=== PATIENT | male | born 1995 | race Caucasian/White ===

== ENCOUNTER 2025-02-14 20:09 | Day surgery (SDC) | payer SELFPAY ==
--- NOTE | ~2025-02-14 | CT_ITS ---
CT abdomen pelvis w con Clinical History: abdominal pain . Comparison: None Technique: Axial images lung bases to symphysis pubis 100 mL Omnipaque 350 Coronal, sagittal reformats CT images acquired with automatic exposure control for dose reduction DLP: 213 mGy-cm Findings: Lung bases: Clear. Visualized heart and pericardium: Unremarkable. Liver: Unremarkable. Gallbladder: Unremarkable. Spleen: Unremarkable. Pancreas: Unremarkable. Adrenal glands: Unremarkable. Kidneys: Right kidney- No hydronephrosis. No renal stones. Left kidney- No hydronephrosis. No renal stones. Distal esophagus/stomach: Unremarkable. Small bowel loops: Normal caliber and wall thickness. Colon: Normal caliber and wall thickness. Appendix enlarged. Nodes: No enlarged nodes. Peritoneum: No ascites. No free air. Urinary bladder: Unremarkable. Prostate: Unremarkable. Bones: No acute bony abnormality. Soft tissues: Unremarkable. Aorta: No aneurysm or dissection. IVC: Unremarkable. Main portal vein/SMV/splenic vein: Patent. IMPRESSION: 1. Acute appendicitis. Reviewed, dictated and finalized at location R. NING GENERALIST IMPRESSION: 1. Acute appendicitis.
--- OUTSIDE RECORDS SUMMARY | 2025-02-14 20:12 | XMS_ITS | Clinical Summary ---
Author Organization [facility] Address [address] [place] [address] Care Team Providers Care Fire Safety Director Name Role Phone No, Pcp FILLER SPREADER Primary Care Provider Unavailabl e Social History Tobacco Use Types Packs/Day Years Used Date Smoking Tobacco: Never Assessed Sex and Gender Information Value Date Recorded Sex Assigned at Not on file Legal Sex Male 10:27 AM EST Gender Identity Not on file Sexual Orientation Not on file Plan of Treatment Not on file Medical Devices Not on file Care Teams Fire Safety Director Relationship Specialty Start Date End Date No, Pcp, FILLER SPREADER N/A Do not use PCP - General Family Medicine 01/23/20
--- NOTE | 2025-02-14 20:58 | ECG_ITS ---
Test Date: 2025-02-14 23:20:48 Measurements Intervals [place] Rate: 57 P: 83 AR: 156 QRS: 87 QRSD: 102 T: 56 QT: 405 QTc: 395 Interpretive Statements SINUS BRADYCARDIA INCOMPLETE RIGHT BUNDLE BRANCH BLOCK MINIMAL Q WAVES- INFERIOR LEADS ST ELEVATION N ANTERIOR LEADS CONSISTENT WITH INJURY, PERICARDITIS, OR EARLY REPOLARIZATION [ST ELEVATION W/O NORMALLY INFLECTED T-WAVE] BASELINE ARTIFACT- I, II, AVR, V5 ABNORMAL ECG No previous ECG available for comparison Electronically Signed On 02-15-2025 06:57:38 HOSPICE RN by Jass Larkin D.O.
[2025-02-14 20:59] VITALS: BP 90/67; PULSE 57; RESP 16; TEMP 36.7; O2SAT 100
[2025-02-14 23:17] VITALS: BP 116/69; PULSE 49; RESP 16; TEMP 36.5; O2SAT 100
[2025-02-14 23:27] LABS: Hematocrit 45.6 % (42.0-52.0); Hemoglobin 16.1 g/dL (14.0-18.0); Immature Granulocyte Percent A 0.5 % (0-0.5); Lymphocytes Absolute Auto 0.89 K/mm3 (0.9-3.2); Mean Corpuscular HGB Conc 35.3 g/dl (32-36); Mean Corpuscular Hemoglobin 31.4 pg (26-34); Mean Corpuscular Volume 88.9 fl (80-100); Nucleated Red Blood Cells Absolute Auto 0.000 K/mm3 (0.0-0.012); Nucleated Red Blood Cells Perc 0.0 % (0.0-0.2); Platelet Count Result 187 k/mm3 (150-375); Red Blood Count 5.13 M/mm3 (4.6-6.20); White Blood Count 12.2 K/mm3 (4.5-10.0)
[2025-02-14 23:38] LABS: Alanine Aminotransferase 20 U/L (6-50); Albumin Level 5.3 g/dL (3.5-5.1); Alkaline Phosphatase 48 U/L (38-126); Anion Gap 12 mmol/L (4-12); Aspartate Amino Transferase 38 U/L (17-59); Bilirubin,Total 1.7 mg/dL (0.2-1.3); Blood Urea Nitrogen 14 mg/dL (9-20); Calcium 10.0 mg/dL (8.4-10.2); Carbon Dioxide 27 mmol/L (22-30); Chloride 100 mmol/L (98-107); Estimated CRCL calculation 83 ml/min; Estimated Glomerular Filt Rate > 60; Glucose 116 mg/dL (65-110); Lipase 481 U/L (23-300); Potassium 4.0 mmol/L (3.4-5.0); Sodium 139 mmol/L (137-145); Total Protein 9.1 g/dL (6.3-8.2)
[2025-02-15] VITALS (31 sets, daily range): BP systolic 109–149; BP diastolic 52–82; PULSE 40–82; RESP 10–21; TEMP 36.5–36.8; O2SAT 97–100; BMI 19.2
[2025-02-15] MEDS: SODIUM CHLORIDE 0.9% IV 1,000 ML 999 ML IV CONT (03:24)
[2025-02-15] MEDS: ONDANSETRON INJ 4 MG/2 ML VIAL IV PUSH ×2 (03:24→11:49)
[2025-02-15] MEDS: MORPHINE SULFATE (*CRX) 4 MG/ML INJ IV PUSH ×2 (03:25→06:57)
--- NOTE | 2025-02-15 05:40 | ED_ITS ---
HPI - General Adult General Chief complaint: Abdominal Pain Stated complaint: abd pain Time Seen by Provider: 02/15/25 02:18 History of Present Illness HPI narrative: patient is a 29-year-old gentleman presents emergency department chief complaint of abdominal pain patient reports the pain is in the epigastrium left upper quadrant area reports he has vomited 3-4 times also reports that some diarrhea the patient reports the pain is not improved by anything does report that it is worse with palpation and movement Related Data Allergies Allergy/AdvReac Type Severity Reaction Status Date / Time No Known Allergies Allergy Verified 02/14/25 20:10 Review of Systems 2 Review of Systems: A 10 system review of systems was completed on the patient and is negative except for what is stated in the HPI. Nursing and ancillary documentation was reviewed. Exam 2 Narrative: GENERAL: Well-appearing, well-nourished, and in no acute distress. HEAD: Normocephalic, atraumatic. EYES: PERRLA and EOMI. ENT: Nares clear, no rhinorrhea or epistaxis. Mucous membranes moist. NECK: Supple. CHEST: Clear to auscultation. No respiratory distress. HEART: Regular rate and rhythm. No murmur heard. Normal peripheral pulses. ABDOMEN: Soft, to palpation epigastric and left upper quadrant, nondistended, normal active bowel sounds. EXTREMITIES: Normal range of motion. No edema. SKIN: Warm, dry, no rash. NEURO: No focal deficits. Alert and oriented x3. PSYCH: Normal mood and affect. Course Vital Signs Vital signs: Vital Signs Temperature 36.7 C 02/14/25 20:59 Pulse Rate 57 L 02/14/25 20:59 Respiratory Rate 16 02/14/25 20:59 Blood Pressure 90/67 L 02/14/25 20:59 Pulse Oximetry 100 02/14/25 20:59 Oxygen Delivery Room Air 02/14/25 20:59 Temperature 36.5 C 02/14/25 23:17 Pulse Rate 54 L 02/15/25 07:25 Respiratory Rate 20 02/15/25 07:25 Blood Pressure 133/62 02/15/25 07:25 Pulse Oximetry 98 02/15/25 07:25 Oxygen Delivery Room Air 02/14/25 20:59 MDM Differential Diagnosis Differential Diagnosis: differential diagnosis includes intra-abdominal infection, diverticulitis, colitis, gastritis, CT scan showed a 1.3 cm appendix concerning for appendicitis Patient started on Zosyn case was discussed with Dr. Lara of surgery Lab Data 02/14/25 23:21 02/14/25 23:21 Labs: Lab Results 02/14/25 02/15/25 Range/Units 23:21 05:48 WBC 12.2 H (4.5-10.0) K/mm3 RBC 5.13 (4.6-6.20) M/mm3 Hgb 16.1 (14.0-18.0) g/dL Hct 45.6 (42.0-52.0) % MCV 88.9 (80-100) fl MCH 31.4 (26-34) pg MCHC 35.3 (32-36) g/dl RDW 11.6 (11.5-14.5) % Plt Count 187 (150-375) k/mm3 MPV 10.1 (7.4-10.4) fl Immature Gran % (Auto) 0.5 (0-0.5) % Neut % (Auto) 88.2 H (45.5-73.1) % Lymph % (Auto) 7.3 L (18.3-44.2) % [place] % (Auto) 3.6 (2.6-8.5) % Eos % (Auto) 0.1 (0-4.4) % Baso % (Auto) 0.3 (0.2-1.2) % Lymph # (Auto) 0.89 L (0.9-3.2) K/mm3 [place] # (Auto) 0.4 (0.1-0.6) K/mm3 Eos # (Auto) 0.0 (0-0.3) K/mm3 Baso # (Auto) 0.0 (0.0-0.1) K/mm3 Abs Immat Gran (auto) 0.06 H (0.00-0.031) K/mm3 Absolute Neuts (auto) 10.8 H (1.3-6.7) K/mm3 Absolute Nucleated RBC 0.000 (0.0-0.012) K/mm3 Nucleated RBC % 0.0 (0.0-0.2) % Sodium 139 (137-145) mmol/L Potassium 4.0 (3.4-5.0) mmol/L Chloride 100 (98-107) mmol/L Carbon Dioxide 27 (22-30) mmol/L Anion Gap 12 (4-12) mmol/L BUN 14 (9-20) mg/dL Creatinine 0.95 (0.7-1.3) mg/dL Estim Creat Clear Calc 83 ml/min Estimated GFR > 60 (59 - ) Glucose 116 H (65-110) mg/dL Calcium 10.0 (8.4-10.2) mg/dL Total Bilirubin 1.7 H (0.2-1.3) mg/dL AST 38 (17-59) U/L ALT 20 (6-50) U/L Alkaline Phosphatase 48 (38-126) U/L Total Protein 9.1 H (6.3-8.2) g/dL Albumin 5.3 H (3.5-5.1) g/dL Lipase 481 H (23-300) U/L Urine Color Yellow (Yellow) Urine Appearance Clear (Clear) Urine pH 6.0 (5.0-9.0) Ur Specific [place] > 1.045 H (1.001-1.035) Urine Protein Negative (Negative) mg/dL Urine Glucose (UA) Negative (Negative) mg/dL Urine Ketones 3+ H (Negative) mg/dL Ur Blood (Man) Negative (Negative) Urine Nitrate Negative (Negative) Urine Bilirubin Negative (Negative) Urine Urobilinogen 1.0 (<2.0) mg/dL Leukocyte Esterase Rfl Negative (Negative) ERIK/UL Imaging Data Radiologist's impression: ITS Impressions Abdomen/Pelvis CT 02/15/25 07:21 IMPRESSION: 1. Acute appendicitis. Discharge Plan Discharge Clinical Impression: Acute appendicitis Patient Disposition: Still a Patient Condition: Stable Instructions: Antibiotic Form Patient Language: Slovak Follow-up/Referrals: PHYSICIAN,LATHE OPERATOR CONTACT LENS [Primary Care Provider, Internal Medicine] Time of Disposition: 07:34
[2025-02-15 05:55] LABS: Add Urine Microscopic? NO; Appearance Urine Clear (Clear); Glucose Urine UA Negative (Negative); Leukocyte Esterase Ur Negative LEU/UL (Negative); Nitrate Urine Negative (Negative); Specific Grav Ur > 1.045 (1.001-1.035)
[2025-02-15] MEDS: PIPERACILLIN/TAZOBACTAM SOD 3.375 GM in SODIUM CHLORIDE 0.9% IV 50 ML 100 ML IVPB (07:24)
--- NOTE | 2025-02-15 07:40 | PM.IMHP2 ---
H&P: HPI History of Present Illness Date/Time: 02/15/25 07:40 Chief Complaint: Lower abdominal pain, acute appendicitis Narrative: Patient is a 29-year-old white male who presented to the Emergency a 12 hour history of worsening lower abdominal pain. Pain is actually seems to be a little worse on the left side than the right side. Elevated white blood count 36542. Electrolytes are normal. CT scan abdomen pelvis showed a dilated appendix up to 1.3cm in diameter with a mildly thickened wall. No perforation or periappendiceal abscess seen. He is otherwise a healthy 29-year-old male. No prior abdominal surgery. Review of Systems Review of Systems: The remainder of the review of systems to include constitutional, HEENT, cardiovascular, respiratory, GI, , integumentary, musculoskeletal, endocrine, immunologic, hematologic, psychiatric, and neurologic are all negative except for which is mentioned above in the HPI. Meds Home Medications and Allergies Allergies Allergy/AdvReac Type Severity Reaction Status Date / Time No Known Allergies Allergy Verified 02/14/25 20:10 Vital Signs Vital Signs - 24 hr 02/14/25 20:59 02/14/25 23:17 02/15/25 01:03 Temperature 36.7 C 36.5 C Pulse Rate 57 L 49 L 70 Respiratory Rate 16 16 21 H Blood Pressure 90/67 L 116/69 Pulse Oximetry 100 100 100 Oxygen Delivery Room Air 02/15/25 01:10 02/15/25 01:15 02/15/25 01:16 Temperature Pulse Rate 53 L 51 L 44 L Respiratory Rate 15 12 14 Blood Pressure 122/70 117/68 Pulse Oximetry 99 100 100 Oxygen Delivery 02/15/25 02:04 02/15/25 02:15 02/15/25 02:42 Temperature Pulse Rate 40 L 76 65 Respiratory Rate 15 15 21 H Blood Pressure 114/63 Pulse Oximetry 99 100 99 Oxygen Delivery 02/15/25 02:45 02/15/25 03:00 02/15/25 03:16 Temperature Pulse Rate 49 L 54 L 75 Respiratory Rate 21 H 12 10 L Blood Pressure Pulse Oximetry 99 100 100 Oxygen Delivery 02/15/25 03:30 02/15/25 03:45 02/15/25 04:00 Temperature Pulse Rate 59 L 68 58 L Respiratory Rate 13 19 15 Blood Pressure Pulse Oximetry 100 100 100 Oxygen Delivery 02/15/25 04:15 02/15/25 04:30 02/15/25 04:45 Temperature Pulse Rate 57 L 50 L 50 L Respiratory Rate 16 13 14 Blood Pressure Pulse Oximetry 98 97 97 Oxygen Delivery 02/15/25 05:00 02/15/25 05:15 02/15/25 05:30 Temperature Pulse Rate 51 L 61 67 Respiratory Rate 15 14 11 L Blood Pressure 122/67 Pulse Oximetry 99 98 99 Oxygen Delivery 02/15/25 07:25 Temperature Pulse Rate 54 L Respiratory Rate 20 Blood Pressure 133/62 Pulse Oximetry 98 Oxygen Delivery Exam Const: General: comfortable and no acute distress HENMT: Ears: TM's normal bilaterally Face/Nose/Sinus: Normal nares present Mouth: Yes moist mucous membranes Eyes: General: appearance normal, both eyes and all related structures Sclera: sclerae normal Pupils: Equal, round and reactive pupils present EOM: EOMs intact bilaterally Neck: Neck: supple and no JVD Resp: Effort & Inspection: normal respiratory effort Auscultation: clear to auscultation bilaterally Cardio: Rate: regular rate Rhythm: regular rhythm GI: Other: Abdomen is soft and nondistended. Mild lower abdominal tenderness across suprapubic and right lower quadrant of the abdomen. No generalized peritoneal signs. Minimal guarding. No ventral hernias. Skin: General skin exam: normal color and no rashes or lesions noted Neuro: General: gait normal Speech: normal speech Motor exam (neuro): 5/5 motor strength present throughout Sensory Exam: normal sensation Extrem: General: normal to inspection Psych: Mental Status: mental status grossly normal Affect: normal affect Results Labs Labs: Short CBC 02/14/25 Range/Units 23:21 WBC 12.2 H (4.5-10.0) K/mm3 Hgb 16.1 (14.0-18.0) g/dL Hct 45.6 (42.0-52.0) % Plt Count 187 (150-375) k/mm3 BMP 02/14/25 23:21 Sodium 139 Potassium 4.0 Chloride 100 Carbon Dioxide 27 BUN 14 Creatinine 0.95 Glucose 116 H Calcium 10.0 Liver Function 02/14/25 Range/Units 23:21 Total Bilirubin 1.7 H (0.2-1.3) mg/dL AST 38 (17-59) U/L ALT 20 (6-50) U/L Alkaline Phosphatase 48 (38-126) U/L Albumin 5.3 H (3.5-5.1) g/dL Urine 12/24/25 Range/Units 05:48 Urine Color Yellow (Yellow) Urine Appearance Clear (Clear) Urine pH 6.0 (5.0-9.0) Ur Specific [place] > 1.045 H (1.001-1.035) Urine Protein Negative (Negative) mg/dL Urine Glucose (UA) Negative (Negative) mg/dL Assessment and Plan Assessment and plan (1) Acute appendicitis: Code(s): K35.80 - Unspecified acute appendicitis Status: Acute Assessment and Plan: Patient appears to have early acute appendicitis. Pain is in the correct location has a slightly elevated white blood cell count leukocytosis 12,200. CT scan abdomen pelvis shows a dilated appendix to 1.3cm with thickened wall consistent with acute appendicitis. Patient has been started on IV antibiotics per will keep him NPO on Hydrea of IV fluids. To the upper later this morning for an urgent laparoscopic appendectomy possible conversion open appendectomy. Risks, benefits, indications, and expected outcomes were discussed in detail with the patient and/or family. They understand and I have answered all other questions. They wished to proceed with surgery as outlined above.
--- NOTE | 2025-02-15 07:44 | WPDHPUPDATE1 ---
History and Physical Update Update Date/Time: 02/15/25 07:44 History and Physical has been reviewed, including an updated exam of the patient. There are NO changes in the patient's condition. Risks, benefits, and alternatives have been discussed and questions answered. Patient agrees to proceed with procedure.
--- OUTSIDE RECORDS SUMMARY | 2025-02-15 08:07 | XMS_ITS | Clinical Summary ---
Author Organization [facility] lin Address [address] [place] [address] Care Team Providers Care Hospice Volunteer Coordinator Name Role Phone No, Pcp HR CONSULTANT Primary Care Provider Unavailabl e Social History Tobacco Use Types Packs/Day Years Used Date Smoking Tobacco: Never Assessed Sex and Gender Information Value Date Recorded Sex Assigned at Not on file Legal Sex Male 10:27 AM EST Gender Identity Not on file Sexual Orientation Not on file Plan of Treatment Not on file Medical Devices Not on file Care Teams Hospice Volunteer Coordinator Relationship Specialty Start Date End Date No, Pcp, HR CONSULTANT N/A Do not use PCP - General Family Medicine 01/23/20
--- NOTE | 2025-02-15 09:25 | P.PNAN_ITS ---
Anes - Initial Pre Proc Eval Procedure: Operation Date: 02/15/25 10:00 Proposed Procedures p Laparoscopic Appendectomy - Aaron Lara MD Date/Time: 02/15/25 09:25 Surgeon: Aaron Lara MD Pre Op Diagnosis: abd pain Patient Data Age: 29 Gender: M Height: 1.73 m Weight: 57.3 kg Last Vital Signs Temp 36.8 C 02/15/25 08:15 Pulse 50 L 02/15/25 08:15 Resp 16 02/15/25 08:15 BP 120/60 02/15/25 08:15 Pulse Ox 100 02/15/25 08:15 O2 Del Method Room Air 02/15/25 08:15 Allergies Allergy/AdvReac Type Severity Reaction Status Date / Time No Known Allergies Allergy Verified 02/14/25 20:10 Laboratory Tests 02/14/25 02/15/25 23:21 05:48 WBC 12.2 H K/mm3 (4.5-10.0) RBC 5.13 M/mm3 (4.6-6.20) Hgb 16.1 g/dL (14.0-18.0) Hct 45.6 % (42.0-52.0) MCV 88.9 fl (80-100) MCH 31.4 pg (26-34) MCHC 35.3 g/dl (32-36) RDW 11.6 % (11.5-14.5) Plt Count 187 k/mm3 (150-375) MPV 10.1 fl (7.4-10.4) Immature Gran % (Auto) 0.5 % (0-0.5) Neut % (Auto) 88.2 H % (45.5-73.1) Lymph % (Auto) 7.3 L % (18.3-44.2) [place] % (Auto) 3.6 % (2.6-8.5) Eos % (Auto) 0.1 % (0-4.4) Baso % (Auto) 0.3 % (0.2-1.2) Lymph # (Auto) 0.89 L K/mm3 (0.9-3.2) [place] # (Auto) 0.4 K/mm3 (0.1-0.6) Eos # (Auto) 0.0 K/mm3 (0-0.3) Baso # (Auto) 0.0 K/mm3 (0.0-0.1) Abs Immat Gran (auto) 0.06 H K/mm3 (0.00-0.031) Absolute Neuts (auto) 10.8 H K/mm3 (1.3-6.7) Absolute Nucleated RBC 0.000 K/mm3 (0.0-0.012) Nucleated RBC % 0.0 % (0.0-0.2) Sodium 139 mmol/L (137-145) Potassium 4.0 mmol/L (3.4-5.0) Chloride 100 mmol/L (98-107) Carbon Dioxide 27 mmol/L (22-30) Anion Gap 12 mmol/L (4-12) BUN 14 mg/dL (9-20) Creatinine 0.95 mg/dL (0.7-1.3) Estim Creat Clear Calc 83 ml/min Estimated GFR > 60 (59 - ) Glucose 116 H mg/dL (65-110) Calcium 10.0 mg/dL (8.4-10.2) Total Bilirubin 1.7 H mg/dL (0.2-1.3) AST 38 U/L (17-59) ALT 20 U/L (6-50) Alkaline Phosphatase 48 U/L (38-126) Total Protein 9.1 H g/dL (6.3-8.2) Albumin 5.3 H g/dL (3.5-5.1) Lipase 481 H U/L (23-300) Urine Color Yellow (Yellow) Urine Appearance Clear (Clear) Urine pH 6.0 (5.0-9.0) Ur Specific [place] > 1.045 H (1.001-1.035) Urine Protein Negative mg/dL (Negative) Urine Glucose (UA) Negative mg/dL (Negative) Urine Ketones 3+ H mg/dL (Negative) Ur Blood (Man) Negative (Negative) Urine Nitrate Negative (Negative) Urine Bilirubin Negative (Negative) Urine Urobilinogen 1.0 mg/dL (<2.0) Leukocyte Esterase Rfl Negative ERIK/UL (Negative) Patient hx anesthesia problems: none Family hx anesthesia problems: none Results Review: All pre-operative results and documents have been reviewed as part of the pre- operative evaluation. Anes - Eval Final PreProcedure Day of Procedure 02/15/25 09:25 Patient weight: normal Heart: regular rate and rhythm Lungs: clear to auscultation Airway: Mallampati scale class II Neurological: alert and oriented Last oral intake: >/= 8 hours ASA classification: II Emergent: yes Anesthetic plan: proceed Anesthesia type and monitoring: general ETT and standard monitoring Results Review: All pre-operative results and documents have been reviewed as part of the pre- operative evaluation. Informed Consent: The patient's anesthetic plan and its attendant risks and benefits were discussed with the patient/family/POA. Questions were solicited and answers provided to the satisfaction of the patient/family/POA.
[2025-02-15] MEDS: LACTATED RINGERS 1,000 ML 30 ML IV CONT ×2 (10:02→11:18)
--- NOTE | 2025-02-15 10:05 | WPDHPUPDATE1 ---
History and Physical Update Update Date/Time: 02/15/25 10:05 History and Physical has been reviewed, including an updated exam of the patient. There are NO changes in the patient's condition. Risks, benefits, and alternatives have been discussed and questions answered. Patient agrees to proceed with procedure.
[2025-02-15] MEDS: LIDO 1%/EPINEPHRINE 1:100,000 50 ML VIAL (10:38)
--- NOTE | 2025-02-15 10:57 | S_PTH ---
PATIENT: Becky Del Real LOC: [facility] U#:[id number] AGE/SX: 29/M ROOM: RE02/15/[address]: Aaron Lara MD : 1995 BED: DIS: 02/15/2025 SPEC #: [id number] RECD: 02/15/25 12:51 STATUS: MIESHA REQ #: [id number] CHANEL: 02/15/25 10:[address]: Aaron Lara DEPT: [facility] Surgical RECD BY: Miranda Pappas ENTERED: 02/15/25 12:51 SP TYPE: Surgical OTHR DR: AUTH SPECIALIST PHYSICIAN Ishmael Benjamin MD Tissues: A - Appendix Procedures: Hematoxylin and Eosin Stain Gross and Microscopic Level 3
--- NOTE | 2025-02-15 11:29 | P.OP_ITS ---
Procedure Note - Detailed Date of Procedure 02/15/25 Pre-op Diagnosis Acute appendicitis Post-op Diagnosis Same Procedure Performed Laparoscopic appendectomy Surgeon Aaron Lara MD Plate And Weld Inspector CHRISTEL Faust Anesthesia General Indications patient is a 29-year-old white male presented to the emergency room the 12hour history of worsening lower abdominal pain. [place] [address]. He had tenderness no right lower quadrant on exam. CT scan abdomen pelvis showed a dilated appendix up to 1.3cm in diameter with thickened wall consistent with an early acute appendicitis without perforation. No pelvic abscess was seen. He presents now for an emergent laparoscopic appendectomy. Findings The patient acute appendicitis. It was mildly dilated but no perforation or gangrene was seen. The base of appendix was normal in appearance. No periappendiceal abscess was seen. Description of Procedure After informed consent was obtained patient brought to the operating room was placed supine position and general endotracheal anesthesia was administered. A Vilchis catheter was placed decompress the bladder the abdomen was then prepped and draped usual sterile fashion. A time-out was then performed correctly identifying the patient as well as procedure to be performed. He was already given some scheduled IV antibiotics in the emergency room. I 1st started by placing a 5mm Optiview port in the left upper quadrant and entered the abdomen under direct visualization. Once inside the abdomen insufflated to adequate pneumoperitoneum of 15mmHg of CO2. I then placed additional trocar ports to include a 12mm periumbilical trocar port as well as a 5mm suprapubic trocar port a 5mm right lower quadrant trocar port all under direct visualization. The appendix was easily seen the right lower quadrant. It was acutely inflamed without evidence of perforation or gangrene. The appendix was held laparoscopic grasper and elevated until the base was identified. The base of the appendix appeared to be normal. I then made a defect utilizing a [place] dissected through the mesoappendix just at the base of the appendix. A echelon 45mm huber red stapler was then used to divide the appendix flush with the cecum. A vascular reload to the 45mm powered stapler was then used to divide the mesoappendix. The appendix was then placed into an Endo-Catch bag and brought out through the periumbilical trocar port site. It was sent to pathology for examination. There is a small amount of blood clot noted in the right lower quadrant. This was suctioned up. Examination of both staple lines on the mesoappendix and the appendiceal stump revealed no bleeding. I then proceeded to remove all the trocar ports under direct visualization all port sites appeared hemostatic. The abdomen was allowed to decompress. I then irrigated all the port sites sterile saline solution. Hemostasis was good. I then closed the 12mm periumbilical trocar port fascial defect utilizing 0 Vicryl suture. The skin edges in all the port sites were then approximated utilizing a running subcuticular 4-0 Monocryl suture. The incisions were then cleaned the skin glue was applied. The patient tolerated the procedure well no complications. All sponges, needles, and instrument counts were correct at the end procedure. EBL was _10_cc. The patient was awakened and taken to recovery in stable and satisfactory condition. Vilchis was removed at the end the procedure. Implants None Estimated Blood Loss 10 Drains No Packing No Pathology Yes ( Appendix sent to pathology) Complications No immediate complications Condition Stable Disposition PACU [facility] Billing Surgery - Charge Forward: Surgery Billing
[2025-02-15] MEDS: fentaNYL CITRATE INJ (*CRX) 100 MCG/2 ML VIAL 25 MCG IV PUSH ×7 (11:45→13:40)
[2025-02-15] MEDS: oxyCODONE HCL (*CRX) 5 MG TAB IR PO (12:58)
== END 2025-02-15 14:24 | disposition home or self-care (01) ==
LOC: ANHED 02-15 07:44 → ANHSURGERY 02-15 08:04
PROVIDERS: Emergency Provider Emergency Medicine; Visit Provider Surgery
PROC: 0DTJ4ZZ Resection of Appendix, Percutaneous Endoscopic Approach (ICD-10-PCS; CPT 44970; principal; 2025-02-15 10:00)
DX: K35.80 Unspecified acute appendicitis (principal)
CPT/HCPCS: 44970; 36415; 74177; 80053; 81003; 83690; 85025; 88304; 93005; 96361; 96365; 96375; 96376; 99285; A9270; J0330; J1100; J2003; J2004; J2250; J2270; J2405; J2543; J2704; J3010; J7030; J7120; Q9967